=== PATIENT | male | born 1950 | race Caucasian/White ===

== ENCOUNTER 2018-07-02 03:30 | Inpatient (IN) | payer MEDICARE ==
[~2018-07-02] VITALS: Ht 180.3 cm; Wt 83.6 kg
[2018-07-02] MEDS ORDERED: methylPREDNISolone SOD SUCC 125 MG/2 ML IVP ONE (04:30)
[2018-07-02] MEDS ORDERED: ALBUTEROL SULFATE 2.5 MG/3 ML NPPB ONE (04:30)
[2018-07-02 04:38] LABS: BASOPHILS # (AUTO) 0.03 x10^3/uL (0-0.1); BASOPHILS % (AUTO) 0 % (0-1); EOSINOPHILS # (AUTO) 0.01 x10^3/uL (0-0.4); EOSINOPHILS % (AUTO) 0 % (1-7); LYMPHOCYTES # (AUTO) 0.73 x10^3/uL (1-3.4); LYMPHOCYTES % (AUTO) 5 % (22-44); MD NO; MEAN CORPUSCULAR HEMOGLOBIN 33.1 pg (27.5-34.5); MEAN CORPUSCULAR HGB CONC 33.1 g/dL (33.2-36.2); MEAN CORPUSCULAR VOLUME 99.9 fL (81-97); MEAN PLATELET VOLUME 8.6 fL (7.4-10.4); MONOCYTES # (AUTO) 0.78 x10^3/uL (0.2-0.8); MONOCYTES % (AUTO) 6 % (2-9); NEUTROPHILS # (AUTO) 11.86 x10^3/uL (1.8-6.8); NEUTROPHILS % (AUTO) 89 % (42-75); PLATELET COUNT 242 x10^3/uL (130-400); RED BLOOD COUNT 5.36 x10^6/uL (4.38-5.82); RED CELL DISTRIBUTION WIDTH 13.2 % (9.4-14.8)
[2018-07-02 04:44] LABS: ALANINE AMINOTRANSFERASE 35 U/L (12-78); ALBUMIN 4.2 g/dL (3.4-5.0); ANION GAP 10 mmol/L (5-15); CALCIUM 8.8 mg/dL (8.5-10.1); CHLORIDE 107 mmol/L (98-107); CREATININE 0.93 mg/dL (0.7-1.3)
[2018-07-02 04:49] LABS: ALKALINE PHOSPHATASE 89 U/L (45-117); BILIRUBIN,TOTAL 0.9 mg/dL (0.2-1.0); TOTAL PROTEIN 7.8 g/dL (6.4-8.2); TROPONIN I < 0.015 ng/mL (0.000-0.045)
[2018-07-02] MEDS ORDERED: methylPREDNISolone SOD SUCC 125 MG/2 ML ONE (05:24)
[2018-07-02] MEDS ORDERED: OMNIPAQUE 350 MG/ML, 100ML BOTTLE ONE (06:30)
[2018-07-02] MEDS ORDERED: POLYETHYLENE GLYCOL 17 GM PACKET PO PRN (08:00)
[2018-07-02] MEDS ORDERED: ENALAPRILAT 1.25 MG/ML, 2ML IVPush PRN (08:00)
[2018-07-02] MEDS ORDERED: DOCUSATE 100 MG CAPSULE PO PRN (08:00)
[2018-07-02] MEDS ORDERED: ACETAMINOPHEN 325 MG TABLET PO PRN (08:00)
[2018-07-02] MEDS ORDERED: BISACODYL 10 MG SUPP PR PRN (08:00)
[2018-07-02] MEDS ORDERED: ONDANSETRON 2MG/ML, 2ML IVPush PRN (08:00)
[2018-07-02] MEDS ORDERED: CEFTRIAXONE 1,000 MG in SODIUM CHLORIDE 0.9% 50 ML IV SCH (08:30)
[2018-07-02 10:22] VITALS: BP 164/93
[2018-07-02] MEDS: CEFTRIAXONE PMX 1GM/50ML 50 ML IV SCH (10:30)
[2018-07-02] MEDS: methylPREDNISolone SOD SUCC 125 MG/2 ML IVPush SCH ×3 (10:30→20:29)
[2018-07-02] MEDS: GUAIFENESIN ER 600 MG TABLET PO SCH ×2 (10:30→20:29)
[2018-07-02] MEDS: SODIUM CHLORIDE FLUSH 10ML SYR IVF SCH ×2 (10:31→21:00)
[2018-07-02] MEDS ORDERED: ALBUTEROL SULFATE 2.5 MG/3 ML ONE ×2 (11:02→14:24)
[2018-07-02] MEDS: DOXYCYCLINE 100 MG in DEXTROSE 5% 250 ML IV SCH ×2 (12:01→20:29)
[2018-07-02] MEDS ORDERED: ALBUTEROL SULFATE 2.5 MG/3 ML NPPB PRN (14:30)
[2018-07-02 14:40] VITALS: BP 141/82
[2018-07-02] MEDS: ALBUTEROL SULFATE 2.5 MG/3 ML NPPB SCH ×2 (15:00→19:57)
[2018-07-02 19:16] VITALS: BP 132/77
[2018-07-03 00:44] VITALS: BP 136/79
[2018-07-03] MEDS: methylPREDNISolone SOD SUCC 125 MG/2 ML IVPush SCH ×4 (02:48→19:54)
[2018-07-03 05:22] LABS: BASOPHILS % (AUTO) 0 % (0-1); EOSINOPHILS % (AUTO) 0 % (1-7); LYMPHOCYTES # (AUTO) 0.62 x10^3/uL (1-3.4); LYMPHOCYTES % (AUTO) 6 % (22-44); MD NO; MEAN CORPUSCULAR HEMOGLOBIN 33.4 pg (27.5-34.5); MEAN CORPUSCULAR HGB CONC 33.3 g/dL (33.2-36.2); MEAN CORPUSCULAR VOLUME 100.2 fL (81-97); MEAN PLATELET VOLUME 8.7 fL (7.4-10.4); MONOCYTES # (AUTO) 0.43 x10^3/uL (0.2-0.8); MONOCYTES % (AUTO) 4 % (2-9); NEUTROPHILS # (AUTO) 9.52 x10^3/uL (1.8-6.8); NEUTROPHILS % (AUTO) 90 % (42-75); PLATELET COUNT 203 x10^3/uL (130-400); RED BLOOD COUNT 4.75 x10^6/uL (4.38-5.82); RED CELL DISTRIBUTION WIDTH 13.5 % (9.4-14.8)
[2018-07-03 05:25] LABS: CHLORIDE 107 mmol/L (98-107)
[2018-07-03 05:33] LABS: ALANINE AMINOTRANSFERASE 32 U/L (12-78); ALBUMIN 3.6 g/dL (3.4-5.0); ALKALINE PHOSPHATASE 66 U/L (45-117); ANION GAP 8 mmol/L (5-15); BILIRUBIN,TOTAL 0.4 mg/dL (0.2-1.0); CALCIUM 8.7 mg/dL (8.5-10.1); CHOL/HDL RATIO 2.4; CHOLESTEROL, TOTAL 203 mg/dL (140-239); CREATININE 0.82 mg/dL (0.7-1.3); HDL CHOL % 41 % (26-37); HDL CHOLESTEROL (DIRECT) 83 mg/dL (40-60); LDL CHOLESTEROL,CALCULATED 110 mg/dL (54-169); LDL/HDL RATIO 1.3 (0.5-3.0); TOTAL PROTEIN 6.9 g/dL (6.4-8.2); TRIGLYCERIDES 51 mg/dL (50-200); VLDL CHOLESTEROL 10 mg/dL (0-25)
[2018-07-03] MEDS: ALBUTEROL SULFATE 2.5 MG/3 ML NPPB SCH ×4 (07:05→20:00)
[2018-07-03 07:45] VITALS: BP 131/74
[2018-07-03] MEDS: GUAIFENESIN ER 600 MG TABLET PO SCH ×2 (08:17→21:08)
[2018-07-03] MEDS: CEFTRIAXONE PMX 1GM/50ML 50 ML IV SCH (08:17)
[2018-07-03] MEDS: SODIUM CHLORIDE FLUSH 10ML SYR IVF SCH ×2 (08:17→19:55)
[2018-07-03] MEDS: DOXYCYCLINE 100 MG in DEXTROSE 5% 250 ML IV SCH ×2 (08:57→21:24)
[2018-07-03 13:30] VITALS: BP 137/79
[2018-07-03 19:44] VITALS: BP 145/84
[2018-07-04 00:58] VITALS: BP_SYST 0; BP_SYST 146; BP_DIAS 78; BP_DIAS 80
[2018-07-04] MEDS: methylPREDNISolone SOD SUCC 125 MG/2 ML IVPush SCH ×2 (01:57→08:34)
[2018-07-04 04:51] LABS: MEAN CORPUSCULAR HEMOGLOBIN 33.3 pg (27.5-34.5); MEAN CORPUSCULAR HGB CONC 33.3 g/dL (33.2-36.2); MEAN CORPUSCULAR VOLUME 99.9 fL (81-97); MEAN PLATELET VOLUME 8.8 fL (7.4-10.4); PLATELET COUNT 224 x10^3/uL (130-400); RED BLOOD COUNT 4.73 x10^6/uL (4.38-5.82); RED CELL DISTRIBUTION WIDTH 13.5 % (9.4-14.8)
[2018-07-04 06:08] LABS: BASOPHILS # (AUTO) 0.02 x10^3/uL (0-0.1); BASOPHILS % (AUTO) 0 % (0-1); EOSINOPHILS % (AUTO) 0 % (1-7); LYMPHOCYTES # (AUTO) 0.61 x10^3/uL (1-3.4); LYMPHOCYTES % (AUTO) 3 % (22-44); MD SCAN; MONOCYTES % (AUTO) 4 % (2-9); NEUTROPHILS # (AUTO) 16.64 x10^3/uL (1.8-6.8); NEUTROPHILS % (AUTO) 93 % (42-75)
[2018-07-04] MEDS: ALBUTEROL SULFATE 2.5 MG/3 ML NPPB SCH ×3 (06:52→14:22)
[2018-07-04 06:55] VITALS: BP 149/78
[2018-07-04] MEDS: SODIUM CHLORIDE FLUSH 10ML SYR IVF SCH (08:34)
[2018-07-04] MEDS: GUAIFENESIN ER 600 MG TABLET PO SCH (08:34)
[2018-07-04] MEDS: DOXYCYCLINE 100 MG in DEXTROSE 5% 250 ML IV SCH (08:35)
[2018-07-04] MEDS: CEFTRIAXONE PMX 1GM/50ML 50 ML IV SCH (08:35)
[2018-07-04] MEDS ORDERED: DOXY100T PO (14:11)
[2018-07-04] MEDS ORDERED: ALBU18HF PO (14:11)
[2018-07-04] MEDS ORDERED: GUAI600T31 PO (14:11)
[2018-07-04] MEDS ORDERED: FLUT10.6 INH (14:11)
[2018-07-04] MEDS ORDERED: PRED20TA PO (14:11)
[2018-07-04 14:26] VITALS: BP 135/86
[2018-07-04 15:15] VITALS: BP 144/80
[2018-07-04] MEDS ORDERED: DOXYCYCLINE 100MG TABLET PO SCH (21:00)
== END 2018-07-04 17:06 | disposition home or self-care (01) | DRG 871 ==
LOC: ED 06:25 → EDIP 07:11 → 3NW 08:21
PROVIDERS: ADMIT Hospitalist; ATTEND Hospitalist
DX: A41.9 Sepsis, unspecified organism (principal); N17.0 Acute kidney failure with tubular necrosis; J96.01 Acute respiratory failure with hypoxia; J18.9 Pneumonia, unspecified organism; J44.1 Chronic obstructive pulmonary disease with (acute) exacerbation; I10 Essential (primary) hypertension; D75.1 Secondary polycythemia; Z87.891 Personal history of nicotine dependence; J20.9 Acute bronchitis, unspecified; R91.1 Solitary pulmonary nodule; R73.9 Hyperglycemia, unspecified; D75.89 Other specified diseases of blood and blood-forming organs; J84.10 Pulmonary fibrosis, unspecified; R94.31 Abnormal electrocardiogram [ECG] [EKG]; Z72.89 Other problems related to lifestyle
CPT/HCPCS: 36415; 71045; 71275; 80053; 80061; 83880; 84443; 84484; 85025; 87040; 87070; 87081; 87205; 93005; 93306; 94640; 96374; 99291; G0378; J0696; J7060; J7613; Q9967; J2930

== ENCOUNTER 2019-10-16 08:12 | Inpatient (IN) | payer MEDICARE ==
[~2019-10-16] VITALS: Ht 182.9 cm; Wt 92.4 kg
[~2019-10-16 08:12] MED LIST: ALBU18HF PO; DOXY100T PO; FLUT10.6 INH; GUAI600T31 PO; PRED20TA PO
[2019-10-16] MEDS ORDERED: SODIUM CHLORIDE FLUSH 10ML SYR IVF ONE (08:30)
[2019-10-16] MEDS ORDERED: ALBUTEROL/IPRATROPIUM 2.5MG/0.5MG, 3 ML NPPB SCH (08:30)
[2019-10-16] MEDS ORDERED: ALBUTEROL/IPRATROPIUM 2.5MG/0.5MG, 3 ML ONE (08:33)
[2019-10-16 09:03] LABS: BASOPHILS # (AUTO) 0.01 x10^3/uL (0-0.1); BASOPHILS % (AUTO) 0 % (0-1); EOSINOPHILS % (AUTO) 0 % (1-7); LYMPHOCYTES # (AUTO) 0.79 x10^3/uL (1-3.4); LYMPHOCYTES % (AUTO) 9 % (22-44); MD NO; MEAN CORPUSCULAR HEMOGLOBIN 32.6 pg (27.5-34.5); MEAN CORPUSCULAR HGB CONC 32.6 g/dL (33.2-36.2); MEAN CORPUSCULAR VOLUME 100.1 fL (81-97); MEAN PLATELET VOLUME 8.2 fL (7.4-10.4); MONOCYTES # (AUTO) 0.71 x10^3/uL (0.2-0.8); MONOCYTES % (AUTO) 8 % (2-9); NEUTROPHILS # (AUTO) 6.89 x10^3/uL (1.8-6.8); NEUTROPHILS % (AUTO) 82 % (42-75); PLATELET COUNT 195 x10^3/uL (130-400); RED BLOOD COUNT 5.59 x10^6/uL (4.38-5.82)
[2019-10-16 09:10] LABS: ALANINE AMINOTRANSFERASE 35 U/L (12-78); ALBUMIN 3.9 g/dL (3.4-5.0); ANION GAP 10 mmol/L (5-15); CALCIUM 8.6 mg/dL (8.5-10.1); CHLORIDE 101 mmol/L (98-107); CREATININE 1.13 mg/dL (0.7-1.3)
--- NOTE | 2019-10-16 09:12 | NUR ---
Break RN note: Pt resting in bed with eyes closed, easily awakens to this RN entering room. Pt states he is feeling much better after breathing tx, denies other needs.
--- NOTE | 2019-10-16 09:14 | NUR ---
Break RN note: Dr. Polk at bedside to discuss POC with pt.
[2019-10-16 09:15] LABS: ALKALINE PHOSPHATASE 89 U/L (45-117); BILIRUBIN,TOTAL 0.7 mg/dL (0.2-1.0); TOTAL PROTEIN 7.6 g/dL (6.4-8.2); TROPONIN I < 0.015 ng/mL (0.000-0.045)
[2019-10-16 09:38] LABS: RAPID INFLUENZA A POSITIVE (Negative); RAPID INFLUENZA B Negative (Negative)
--- NOTE | 2019-10-16 09:41 | NUR ---
PT RESTING IN GURNEY WITH AT BEDSIDE, STATES HE FEELS BETTER. CALL LIGHT WITHIN REACH. PT FLU A +, AWARE
[2019-10-16] MEDS ORDERED: ALBUTEROL SULFATE PO PRN (10:30)
[2019-10-16] MEDS ORDERED: IBUPROFEN 600 MG TABLET PO PRN (10:30)
[2019-10-16] MEDS ORDERED: hydrALAzine 20 MG/ML, 1ML IVPush PRN (10:30)
[2019-10-16] MEDS ORDERED: morphine SULFATE 10 MG/ML, 1ML IVPush PRN (10:30)
[2019-10-16] MEDS ORDERED: ACETAMINOPHEN 325 MG TABLET PO PRN (10:30)
[2019-10-16] MEDS ORDERED: KETOROLAC 30 MG/1 ML IV PRN (10:30)
[2019-10-16] MEDS ORDERED: BACLOFEN 10 MG TABLET PO PRN (10:30)
[2019-10-16] MEDS ORDERED: ENOXAPARIN 40 MG/0.4 ML SQ SCH (10:30)
[2019-10-16] MEDS ORDERED: ONDANSETRON 2MG/ML, 2ML IVPush PRN (10:30)
[2019-10-16] MEDS ORDERED: ONDANSETRON ODT 4 MG PO PRN (10:30)
[2019-10-16] MEDS ORDERED: OSELTAMIVIR 75 MG CAPSULE ONE (10:42)
[2019-10-16] MEDS ORDERED: ENOXAPARIN 40 MG/0.4 ML ONE (10:42)
--- NOTE | 2019-10-16 10:42 | NUR ---
PT TO BE ADMITTED. IV ESTABLISHED AND PT MEDICTED PER NOV. NO C/O PAIN. AWAITING BED ASSIGNMENT. NO NEEDS AT THIS TIME, CALL LIGHT WITHIN REACH.
[2019-10-16] MEDS: OSELTAMIVIR 75 MG CAPSULE PO SCH ×2 (10:46→21:53)
--- NOTE | 2019-10-16 11:39 | NUR ---
REPORT TO GELACIO MARTINEZ
[2019-10-16 12:13] VITALS: BP 122/63
[2019-10-16 13:35] VITALS: BP 122/83
[2019-10-16] MEDS ORDERED: ALBUTEROL SULFATE 2.5 MG/3 ML NPPB SCH (14:00)
[2019-10-16] MEDS: DOXYCYCLINE 100MG TABLET PO SCH ×2 (14:20→21:53)
[2019-10-16] MEDS: ALBUTEROL SULFATE 2.5 MG/3 ML NPPB SCH ×2 (15:49→20:34)
[2019-10-16 18:36] VITALS: BP 131/81
[2019-10-16] MEDS: BUDESONIDE 0.5 MG/2 ML INHA NPPB SCH (20:34)
[2019-10-16] MEDS ORDERED: TEMPLATE NON-FORMULARY MED. (Fluticasone Propionate (Flovent Hfa 44 Mcg/Inh) 2 PUFF) INH SCH (21:00)
[2019-10-16] MEDS: GUAIFENESIN ER 600 MG TABLET PO SCH (21:53)
[2019-10-17 01:42] VITALS: BP 152/91
[2019-10-17] MEDS: ALBUTEROL SULFATE 2.5 MG/3 ML NPPB SCH ×4 (03:00→21:57)
[2019-10-17 06:32] LABS: MEAN CORPUSCULAR HEMOGLOBIN 32.7 pg (27.5-34.5); MEAN CORPUSCULAR HGB CONC 32.6 g/dL (33.2-36.2); MEAN CORPUSCULAR VOLUME 100.3 fL (81-97); MEAN PLATELET VOLUME 8.2 fL (7.4-10.4); PLATELET COUNT 164 x10^3/uL (130-400); RED CELL DISTRIBUTION WIDTH 14.1 % (9.4-14.8)
[2019-10-17 06:38] LABS: ANION GAP 5 mmol/L (5-15); CALCIUM 8.7 mg/dL (8.5-10.1); CHLORIDE 106 mmol/L (98-107); CREATININE 0.74 mg/dL (0.7-1.3)
[2019-10-17 07:06] LABS: BASOPHILS # (AUTO) 0.01 x10^3/uL (0-0.1); BASOPHILS % (AUTO) 0 % (0-1); EOSINOPHILS # (AUTO) 0.02 x10^3/uL (0-0.4); EOSINOPHILS % (AUTO) 0 % (1-7); LYMPHOCYTES # (AUTO) 0.92 x10^3/uL (1-3.4); LYMPHOCYTES % (AUTO) 18 % (22-44); MD MORPH REVIEW ONLY; MONOCYTES # (AUTO) 0.75 x10^3/uL (0.2-0.8); MONOCYTES % (AUTO) 14 % (2-9); NEUTROPHILS # (AUTO) 3.56 x10^3/uL (1.8-6.8); NEUTROPHILS % (AUTO) 68 % (42-75)
[2019-10-17 07:07] LABS: <PLATELET ESTIMATE> ADEQUATE; <PLT MORPHOLOGY> NORMAL PLT MORPH; ANISOCYTOSIS 1+
[2019-10-17 07:40] VITALS: BP 140/94
[2019-10-17] MEDS: GUAIFENESIN ER 600 MG TABLET PO SCH ×2 (08:31→20:45)
[2019-10-17] MEDS: OSELTAMIVIR 75 MG CAPSULE PO SCH ×2 (08:31→20:44)
[2019-10-17] MEDS: DOXYCYCLINE 100MG TABLET PO SCH ×2 (08:31→20:45)
[2019-10-17] MEDS: BUDESONIDE 0.5 MG/2 ML INHA NPPB SCH ×2 (09:36→21:57)
[2019-10-17] MEDS: LISINOPRIL 10 MG TABLET PO SCH ×2 (11:08→20:45)
[2019-10-17] MEDS: CEFTRIAXONE PMX 1GM/50ML 50 ML IV SCH (13:27)
[2019-10-17 13:41] VITALS: BP 116/79
[2019-10-17 20:43] VITALS: BP 125/83
[2019-10-18 02:11] VITALS: BP 141/86
[2019-10-18] MEDS: ALBUTEROL SULFATE 2.5 MG/3 ML NPPB SCH ×2 (02:52→10:25)
[2019-10-18 06:51] VITALS: BP 157/89
[2019-10-18] MEDS: DOXYCYCLINE 100MG TABLET PO SCH (08:41)
[2019-10-18] MEDS: LISINOPRIL 10 MG TABLET PO SCH (08:41)
[2019-10-18] MEDS: GUAIFENESIN ER 600 MG TABLET PO SCH (08:41)
[2019-10-18] MEDS: OSELTAMIVIR 75 MG CAPSULE PO SCH (08:41)
[2019-10-18] MEDS: BUDESONIDE 0.5 MG/2 ML INHA NPPB SCH (10:25)
[2019-10-18] MEDS ORDERED: DOXY100T PO (12:37)
[2019-10-18] MEDS ORDERED: ALBU2.5V NPPB (12:37)
[2019-10-18] MEDS ORDERED: OSEL75CA14 PO (12:37)
[2019-10-18] MEDS ORDERED: LISI-167 PO (12:37)
[2019-10-18] MEDS ORDERED: PRED20TA PO (12:37)
[2019-10-18] MEDS: CEFTRIAXONE PMX 1GM/50ML 50 ML IV SCH (13:10)
[2019-10-18 13:17] VITALS: BP 123/73
== END 2019-10-18 16:09 | disposition home or self-care (01) | DRG 193 ==
LOC: ED 08:33 → SUATTDRO 10:14 → OBSVTOIN 10:36 → EDIP 10:36 → 4NE 13:18
PROVIDERS: ADMIT Hospitalist; ATTEND Hospitalist
DX: J10.1 Influenza due to other identified influenza virus with other respiratory manifestations (principal); J96.01 Acute respiratory failure with hypoxia; J44.1 Chronic obstructive pulmonary disease with (acute) exacerbation; I50.32 Chronic diastolic (congestive) heart failure; J44.0 Chronic obstructive pulmonary disease with (acute) lower respiratory infection; I11.0 Hypertensive heart disease with heart failure; D53.9 Nutritional anemia, unspecified; D75.1 Secondary polycythemia; D75.89 Other specified diseases of blood and blood-forming organs; R91.1 Solitary pulmonary nodule; Z82.49 Family history of ischemic heart disease and other diseases of the circulatory system; Z87.891 Personal history of nicotine dependence
CPT/HCPCS: 36415; 71045; 71250; 80048; 80053; 82607; 83880; 84443; 84484; 85025; 87400; 93005; 94640; 96372; 99285; G0378; J0696; J1650; J7613; J7620; J7626; J7512

== ENCOUNTER 2020-06-19 10:39 | Emergency (ER) | payer MEDICARE ==
[~2020-06-19] VITALS: Ht 180.3 cm; Wt 87.9 kg
[~2020-06-19 10:39] MED LIST changes: +ALBU2.5V NPPB; +LISI-167 PO; +OSEL75CA14 PO
[2020-06-19 12:13] LABS: BASOPHILS # (AUTO) 0.04 x10^3/uL (0-0.1); BASOPHILS % (AUTO) 1 % (0-1); EOSINOPHILS # (AUTO) 0.45 x10^3/uL (0-0.4); EOSINOPHILS % (AUTO) 6 % (1-7); LYMPHOCYTES # (AUTO) 1.46 x10^3/uL (1-3.4); LYMPHOCYTES % (AUTO) 21 % (22-44); MD NO; MEAN CORPUSCULAR HEMOGLOBIN 33.3 pg (27.5-34.5); MEAN CORPUSCULAR HGB CONC 32.3 g/dL (33.2-36.2); MEAN CORPUSCULAR VOLUME 102.9 fL (81-97); MEAN PLATELET VOLUME 7.7 fL (7.4-10.4); MONOCYTES # (AUTO) 0.66 x10^3/uL (0.2-0.8); MONOCYTES % (AUTO) 9 % (2-9); NEUTROPHILS # (AUTO) 4.41 x10^3/uL (1.8-6.8); NEUTROPHILS % (AUTO) 63 % (42-75); PLATELET COUNT 196 x10^3/uL (130-400); RED CELL DISTRIBUTION WIDTH 13.6 % (9.4-14.8)
[2020-06-19 12:22] VITALS: BP 131/98
[2020-06-19 12:26] LABS: CHLORIDE 107 mmol/L (98-107)
[2020-06-19 12:38] LABS: ALANINE AMINOTRANSFERASE 60 U/L (12-78); ALBUMIN 3.9 g/dL (3.4-5.0); ALKALINE PHOSPHATASE 65 U/L (45-117); ANION GAP 10 mmol/L (5-15); BILIRUBIN,TOTAL 0.6 mg/dL (0.2-1.0); C-REACTIVE PROTEIN, QUANT 0.18 mg/dL (0.02-0.49); CALCIUM 9.7 mg/dL (8.5-10.1); CREATININE 0.89 mg/dL (0.7-1.3); TOTAL PROTEIN 7.2 g/dL (6.4-8.2)
== END 2020-06-19 13:23 | disposition home or self-care (01) ==
LOC: ED 13:07
DX: R42 Dizziness and giddiness (principal); R00.0 Tachycardia, unspecified; R50.9 Fever, unspecified; Z20.828 Contact with and (suspected) exposure to other viral communicable diseases; I10 Essential (primary) hypertension; J44.9 Chronic obstructive pulmonary disease, unspecified
CPT/HCPCS: 36415; 71045; 80053; 82728; 83615; 85025; 86140; 87040; 87635; 93005; 99285

== ENCOUNTER → 2020-09-26 | Outpatient (CLI) | payer MEDICARE | END | disposition home or self-care (01) | LOC: RAD 10:31 | PROVIDERS: ATTEND Registered Nurse | DX: J98.4 Other disorders of lung (principal); J43.9 Emphysema, unspecified; R91.1 Solitary pulmonary nodule; Z87.891 Personal history of nicotine dependence | CPT/HCPCS: 71250 ==

== ENCOUNTER → 2021-05-09 | Outpatient (CLI) | payer MEDICARE | END | disposition home or self-care (01) | LOC: CFH 10:48 | PROVIDERS: ATTEND Registered Nurse | DX: J43.9 Emphysema, unspecified (principal); J98.4 Other disorders of lung; R91.1 Solitary pulmonary nodule | CPT/HCPCS: 71250 ==